=== PATIENT | male | born 1930 | race Caucasian/White ===

== ENCOUNTER → 2016-05-27 | Outpatient (CLI) | payer OTHER ==
--- NOTE | 2016-05-28 14:39 | CODING QUERY NO DIAGNOSIS ---
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 Please assist us with providing a diagnosis/symptom for the test(s) below: A diagnosis/symptom was not documented on your Order. A valid diagnosis/symptom is required to bill all insurances. Please remember that we are unable to code a diagnosis of rule out, probable, possible, questionable, or suspected. DOS 05/27/16 Tests that require a diagnosis: * THROAT CULTURE DIAGNOSIS: Provider Signature: Date: Thank you Gia Anne [employer] Once completed, please kindly fax back to [phone] For questions please call [phone]
== END ==
LOC: C.LABCC 18:04
PROVIDERS: ATTEND Internal Medicine
DX: J02.9 Acute pharyngitis, unspecified (principal)

== ENCOUNTER → 2016-10-23 | Outpatient (CLI) | payer OTHER ==
[2016-10-23 17:16] LABS: URINE APPEARANCE CLOUDY (CLEAR); URINE BILIRUBIN NEG (NEG); URINE COLOR YELLOW; URINE EPITHELIAL CELL AUTO 0-5 /lpf (0-5); URINE NITRITE POS (NEG); URINE SPECIFIC GRAVITY 1.018 (1.000-1.030); UROBILINOGEN NEG (NEG)
[2016-10-23 17:18] LABS: MANUAL MICROSCOPIC REQUIRED? NO; REVIEW REQ? YES
== END ==
LOC: C.LABCC 16:58
PROVIDERS: ATTEND Internal Medicine
DX: R41.82 Altered mental status, unspecified (principal)

== ENCOUNTER → 2017-02-17 | Outpatient (CLI) | payer OTHER ==
[2017-02-17 09:09] LABS: BASO % 0.3 %; BASO ABS # 0.02 K/uL (0-0.2); COMPLETE YES; EOS % 1.8 %; HEMATOCRIT 40.4 % (42-52); IG% 0.3 %; LYMPH % 14.5 %; LYMPH ABS # 0.99 K/uL (1.2-3.4); MEAN CELL VOLUME 95.3 fL (80-100); MEAN CORPUSCULAR HEMOGLOBIN 31.6 pg (25-34); MEAN CORPUSCULAR HGB CONC 33.2 g/dl (32-36); MEAN PLATELET VOLUME 10.2 fL (7.4-10.4); MONO % 13.5 %; NEUT % 69.6 %; PLATELET COUNT 283 K/uL (130-400); RED BLOOD COUNT 4.24 M/uL (4.7-6.1); WHITE BLOOD COUNT 6.82 K/uL (4.8-10.8)
[2017-02-17 09:17] LABS: BLOOD UREA NITROGEN 21 mg/dl (7-18); BUN/CREATININE RATIO 20.9 (10-20); CALCIUM 9.4 mg/dl (8.5-10.1); CARBON DIOXIDE 27 mmol/L (21-32); CHLORIDE 101 mmol/L (98-107); CREATININE 0.98 mg/dl (0.60-1.40); GLUCOSE 88 mg/dl (70-99); POTASSIUM 4.4 mmol/L (3.5-5.1); SODIUM 135 mmol/L (136-145)
== END ==
LOC: C.LABCC 08:58
PROVIDERS: ATTEND Internal Medicine
DX: F03.90 Unspecified dementia, unspecified severity, without behavioral disturbance, psychotic disturbance, mood disturbance, and anxiety (principal); I50.9 Heart failure, unspecified

== ENCOUNTER → 2017-02-21 | Outpatient (CLI) | payer OTHER ==
[2017-02-21 09:44] LABS: URINE APPEARANCE CLOUDY (CLEAR); URINE BILIRUBIN NEG (NEG); URINE COLOR YELLOW; URINE EPITHELIAL CELL AUTO 0-5 /lpf (0-5); URINE NITRITE NEG (NEG); URINE PH 7.5 (4.5-7.5); URINE SPECIFIC GRAVITY 1.017 (1.000-1.030); UROBILINOGEN NEG (NEG)
[2017-02-21 09:51] LABS: MANUAL MICROSCOPIC REQUIRED? NO; REVIEW REQ? NO
== END ==
LOC: C.LABCC 15:25
PROVIDERS: ATTEND Internal Medicine
DX: Z91.81 History of falling (principal)

== ENCOUNTER → 2017-07-27 | Outpatient (CLI) | payer OTHER | LOC: C.LABCC 17:38 | PROVIDERS: ATTEND Internal Medicine | DX: R41.82 Altered mental status, unspecified (principal); R29.6 Repeated falls ==

== ENCOUNTER 2017-08-15 17:47 | Emergency (ER) | payer MEDICARE ==
[~2017-08-15] VITALS: Ht 177.8 cm; Wt 57.2 kg
[2017-08-15 18:02] VITALS: Ht 177.8 cm; Wt 57.2 kg
--- NOTE | 2017-08-15 18:15 | EMERGENCY ROOM VISIT NOTE ---
History Report prepared by Juancarlos: Tarna Cardenas Under the Supervision of: Dr. Feliciano Mendez M.D. First contact with patient: 18:10 Chief Complaint: OTHER COMPLAINT Stated Complaint: FALL History of Present Illness The patient is a 87 year old male who presents to the Emergency Room with complaints of 1 episode of a fall that occurred prior to arrival. Per the Asencio Tillman Pain scale, his pain is rated as 0/10. Per nursing staff, the patient was lying horizontally, and was lying at the bottom of the bed at [facility] without head injury. He was found with a pillow underneath his head and a blanket on top of him. His hand was on his right hip and has red hathaway on his hips. Per nursing staff, he wears padded underpants and uses a Negar Lift. He is non ambulatory at baseline. 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 Review of Systems See HPI for pertinent positives & negatives. Limited review of systems.. Past Medical & Surgical Medical Problems: (1) Dementia Social History Smoking Status: Unknown if Ever Smoked Smokeless Tobacco Use: No Alcohol Use: none Drug Use: none Housing Status: [facility] Occupation Status: retired Current/Historical Medications Scheduled Cholecalciferol (Vitamin D3), 1,000 UNITS PO QAM Memantine (Namenda), 10 MG PO BID Polyvinyl Alcohol-Povidone (Op (Refresh), 1 DROP OPB BID Risperidone (Risperdal), 0.25 MG PO HS Trazodone Hcl (Trazodone), 25 MG PO HS [Skin Prep Broadus], 1 APPLN TD QPM [Skin Prep], 1 APPLN TD Q3DAYS Scheduled PRN Acetaminophen (Tylenol), 1,000 MG PO Q8 PRN for Pain or Fever Bisacodyl (Dulcolax), 1 SUPP [place] DAILY PRN for NO BM IN 3 DAYS. Ipratropium-Albuterol (Duoneb), 1 TREATMENT INH Q4H PRN for SOB/Wheezing Magnesium Hydroxide (Milk of Magnesia), 30 ML PO DAILY PRN for NO BM IN 3 DAYS. Sodium Phosphate/Biphosphate (Fleet Enema), 1 EA [place] DAILY PRN for NO BM AFTER DULCOLAX Allergies Coded Allergies: Donepezil (Verified Allergy, Unknown, [place] CREST LIST, 08/15/17) Iodinated Diagnostic Agents (Verified Allergy, Unknown, [place] CREST LIST , 08/15/17) Physical Exam Vital Signs Date Time Temp Pulse Resp B/P (MAP) Pulse Ox O2 Delivery O2 Flow Rate FiO2 08/15/17 20:40 36.8 66 18 139/77 95 08/15/17 20:30 66 18 139/77 95 Room Air 08/15/17 19:54 66 18 131/77 95 Room Air 08/15/17 19:10 62 18 128/70 95 Room Air 08/15/17 18:02 36.8 66 18 134/72 95 Room Air Physical Exam GENERAL: Patient is severely demented and in no acute distress. Answers questions with yes or moaning. Falls asleep during exam. EYES: No scleral icterus, unremarkable pupils. ENT: Mucous membranes moist, no nasal congestion. NECK: No masses appreciated, no meningismus, trachea is midline. RESPIRATORY: No dyspnea. Clear to auscultation and equal bilaterally. No wheeze , no rhonchi. CARDIOVASCULAR: Regular rate and rhythm. No murmurs, rubs, gallops appreciated. GASTROINTESTINAL: Abdomen soft, nontender, no peritonitis. Bowel sounds positive. No masses appreciated. BACK: No midline tenderness, no CVA tenderness EXTREMITIES: Normal motion all extremities, no cyanosis, no edema. Contractures of all extremities with muscle wasting. NEUROLOGIC: No acute motor or sensory deficits, no focal weakness, cranial nerves grossly intact. SKIN: No rash, no jaundice, no diaphoresis. Medical Decision & Procedures ER Provider Diagnostic Interpretation: Radiology results and stated below per my review and radiologist interpretation: CT SCAN OF THE CERVICAL SPINE CLINICAL HISTORY: Fall. COMPARISON STUDY: No priors. TECHNIQUE: CT scan of the cervical spine is performed from the skull base to the upper thoracic spine. Images are reviewed in the axial, sagittal, and coronal planes. IV contrast was not administered for this examination. A dose lowering technique was utilized adhering to the principles of ALARA. CT DOSE: Reported separately under the concurrently performed CT scan of the cervical spine. FINDINGS: Skeletal structures: The skeletal structures are osteopenic. There is no evidence of fracture or subluxation involving the cervical spine. Vertebral body height and alignment are maintained. Anterior osteophytes are seen throughout. The odontoid process and lateral masses are intact. The atlantoaxial articulation is preserved noting advanced productive degenerative change. The spinous processes appear intact. There is advanced multilevel cervical spondylosis. Uncovertebral and facet arthropathy contribute to neural foraminal stenosis at most levels. Intervertebral discs: There is moderate to advanced disc space narrowing seen at C4-C5, C5-C6, and C6-C7. Milder disc space narrowing is seen at the remaining cervical levels. Central canal: Large posterior disc osteophyte complexes at C4-C5, C5-C6, and C6-C7 likely contribute to multilevel acquired compromise of the central canal. Soft tissues: The prevertebral and paraspinous soft tissues are within normal limits. Atherosclerotic calcification is noted in the carotid bulbs. Calvarium: The visualized calvarium at the skull base appears intact. Brain parenchyma: Partially visualized brain parenchyma the skull base is within normal limits noting age-related involutional change. Sinuses and mastoids: There is opacification of the visualized right sphenoid sinus. The mastoid air cells are well pneumatized. Lung apices: Emphysematous change is noted at the lung apices. Apical lung parenchyma is otherwise grossly clear as imaged. IMPRESSION: 1. There is no evidence of fracture or subluxation involving the cervical spine. 2. Osteopenia and advanced spondylotic change as above. Electronically signed by: Juan Manuel Mota M.D. 08/15/2017 7:22 PM Dictated Date/Time: 08/15/2017 7:18 PM SINGLE VIEW CHEST CLINICAL HISTORY: Change in mental status. Presumed fall. FINDINGS: An AP, portable, upright chest radiograph is obtained. No prior studies are available for comparison at the time of dictation. The examination is degraded by portable technique and patient rotation. The cardiomediastinal silhouette is unremarkable. There is atherosclerotic calcification of the thoracic aorta. The pulmonary vasculature is noncongested. Nonspecific interstitial thickening is likely chronic. Bibasilar atelectasis versus scarring is identified. There is no airspace consolidation or large pleural effusion. No pneumothorax is seen. The skeletal structures are osteopenic. The bony thorax is grossly intact. Arthritic change is noted in the shoulders and thoracic spine. IMPRESSION: No acute cardiopulmonary abnormality. Electronically signed by: Juan Manuel Mota M.D. 08/15/2017 6:40 PM Dictated Date/Time: 08/15/2017 6:[address] SCAN OF THE BRAIN WITHOUT IV CONTRAST CLINICAL HISTORY: Fall. COMPARISON STUDY: No priors. TECHNIQUE: Unenhanced axial CT scan of the brain is performed from the vertex to the skull base. A dose lowering technique was utilized adhering to the principles of ALARA. CT DOSE: 1686.04 mGy.cm FINDINGS: Brain parenchyma: There are age-related involutional changes noting moderate to advanced confluent subcortical and periventricular microangiopathic change. There is no hemorrhage, mass effect, or evidence of acute territorial ischemia by CT criteria. Poon-white matter is preserved. No extra-axial fluid collection is seen. Ventricles, sulci, cisterns: Prominent secondary to involutional change. Intracranial vasculature: There is atherosclerotic calcification of the cavernous carotid and vertebral arteries. Calvarium: The skeletal structures are osteopenic. No depressed calvarial fracture is seen. Sinuses and mastoids: There is subtotal opacification of the right sphenoid sinus. The remaining visualized paranasal sinuses are clear. The mastoid air cells are well pneumatized. Orbits: The bony orbits are grossly intact. IMPRESSION: Senescent changes as above with no hemorrhage, mass effect, or evidence of acute territorial ischemia by CT criteria. Electronically signed by: Juan Manuel Mota M.D. 08/15/2017 7:16 PM Dictated Date/Time: 08/15/2017 7:14 PM SINGLE VIEW PELVIS CLINICAL HISTORY: Fall. Change in mental status. FINDINGS: An AP portable view of the pelvis is obtained. No prior studies are available for comparison at the time of dictation. The skeletal structures are osteopenic. There is no radiographic evidence of fracture involving the hips or bony pelvis. Mild to moderate arthritic change and joint space narrowing is seen in the hips. Sclerotic change is noted in the sacroiliac joints. Lumbosacral spondylosis is partially visualized. The overlying soft tissues are normal in appearance. Rectosigmoid fecal impaction is noted. There is no evidence of bowel obstruction. Numerous surgical clips are present in the pelvis. A penile prosthesis is in place. IMPRESSION: 1. Osteopenia with no radiographic evidence of fracture involving the hips or bony pelvis. 2. Rectosigmoid fecal impaction. Electronically signed by: Juan Manuel Mota M.D. 08/15/2017 6:42 PM Dictated Date/Time: 08/15/2017 6:40 PM ED Course 1810: The patient was evaluated in room C5. A complete history and physical exam was performed. 1929: I checked on the patient and he is stable with no change. 1944: Reevaluated the patient. Discussed results and discharge instructions: The nursing staff verbalized understanding and agreement. The patient is ready for discharge. Medical Decision Severely demented, essentially non-verbal, non walking male arrives after [facility] Unclear how he ended up on floor. He has no evidence of trauma by exam but went ahead with imaging given story and report he may have been tender right hip earlier. CT head/neck negative for acute injury. CXR and Pelvis xray unremarkable. Head Trauma GCS Score: 12 Medication Reconcilliation Current Medication List: was personally reviewed by me Blood Pressure Screening Patient's blood pressure: Normal blood pressure Blood pressure disposition: Did not require urgent referral Impression Primary Impression: Fall Scribe Attestation The scribe's documentation has been prepared under my direction and personally reviewed by me in its entirety. I confirm that the note above accurately reflects all work, treatment, procedures, and medical decision making performed by me. Departure Information Dispostion Home / Self-Care Referrals [facility] (PCP) Patient Instructions My [facility] Additional Instructions Imaging of Brain/Head, Cervical Spine, Chest and Pelvis revealed no fracture, bleeding on brain nor other acute findings. There is arthritis throughout.
[2017-08-15] MEDS ORDERED: POLYSOL OPB (18:34)
[2017-08-15] MEDS ORDERED: IPRASOL4 INH (18:34)
[2017-08-15] MEDS ORDERED: CHOL1000 PO (18:34)
[2017-08-15] MEDS ORDERED: SKIN PREP SPRAY TD (18:34)
[2017-08-15] MEDS ORDERED: ACET-1256 PO (18:34)
[2017-08-15] MEDS ORDERED: NMN10 PO (18:34)
[2017-08-15] MEDS ORDERED: SKIN PREP TD (18:34)
[2017-08-15] MEDS ORDERED: TRAZ50TA35 PO (18:34)
[2017-08-15] MEDS ORDERED: SODIENE PR (18:34)
[2017-08-15] MEDS ORDERED: RISP0.257 PO (18:34)
[2017-08-15] MEDS ORDERED: MOMLX PO (18:34)
[2017-08-15] MEDS ORDERED: BISA10SU38 PR (18:34)
--- NOTE | 2017-08-15 18:41 | DIAGNOSTIC IMAGING REPORT ---
SINGLE VIEW CHEST CLINICAL HISTORY: Change in mental status. Presumed fall. FINDINGS: An AP, portable, upright chest radiograph is obtained. No prior studies are available for comparison at the time of dictation. The examination is degraded by portable technique and patient rotation. The cardiomediastinal silhouette is unremarkable. There is atherosclerotic calcification of the thoracic aorta. The pulmonary vasculature is noncongested. Nonspecific interstitial thickening is likely chronic. Bibasilar atelectasis versus scarring is identified. There is no airspace consolidation or large pleural effusion. No pneumothorax is seen. The skeletal structures are osteopenic. The bony thorax is grossly intact. Arthritic change is noted in the shoulders and thoracic spine. IMPRESSION: No acute cardiopulmonary abnormality. Electronically signed by: Juan Manuel Mota M.D. 08/15/2017 6:40 PM Dictated Date/Time: 08/15/2017 6:38 PM
--- NOTE | 2017-08-15 18:43 | DIAGNOSTIC IMAGING REPORT ---
SINGLE VIEW PELVIS CLINICAL HISTORY: Fall. Change in mental status. FINDINGS: An AP portable view of the pelvis is obtained. No prior studies are available for comparison at the time of dictation. The skeletal structures are osteopenic. There is no radiographic evidence of fracture involving the hips or bony pelvis. Mild to moderate arthritic change and joint space narrowing is seen in the hips. Sclerotic change is noted in the sacroiliac joints. Lumbosacral spondylosis is partially visualized. The overlying soft tissues are normal in appearance. Rectosigmoid fecal impaction is noted. There is no evidence of bowel obstruction. Numerous surgical clips are present in the pelvis. A penile prosthesis is in place. IMPRESSION: 1. Osteopenia with no radiographic evidence of fracture involving the hips or bony pelvis. 2. Rectosigmoid fecal impaction. Electronically signed by: Juan Manuel Mota M.D. 08/15/2017 6:42 PM Dictated Date/Time: 08/15/2017 6:40 PM
--- NOTE | 2017-08-15 19:18 | DIAGNOSTIC IMAGING REPORT ---
CT SCAN OF THE BRAIN WITHOUT IV CONTRAST CLINICAL HISTORY: Fall. COMPARISON STUDY: No priors. TECHNIQUE: Unenhanced axial CT scan of the brain is performed from the vertex to the skull base. A dose lowering technique was utilized adhering to the principles of ALARA. CT DOSE: 1686.04 mGy.cm FINDINGS: Brain parenchyma: There are age-related involutional changes noting moderate to advanced confluent subcortical and periventricular microangiopathic change. There is no hemorrhage, mass effect, or evidence of acute territorial ischemia by CT criteria. Poon-white matter is preserved. No extra-axial fluid collection is seen. Ventricles, sulci, cisterns: Prominent secondary to involutional change. Intracranial vasculature: There is atherosclerotic calcification of the cavernous carotid and vertebral arteries. Calvarium: The skeletal structures are osteopenic. No depressed calvarial fracture is seen. Sinuses and mastoids: There is subtotal opacification of the right sphenoid sinus. The remaining visualized paranasal sinuses are clear. The mastoid air cells are well pneumatized. Orbits: The bony orbits are grossly intact. IMPRESSION: Senescent changes as above with no hemorrhage, mass effect, or evidence of acute territorial ischemia by CT criteria. Electronically signed by: Juan Manuel Mota M.D. 08/15/2017 7:16 PM Dictated Date/Time: 08/15/2017 7:14 PM
--- NOTE | 2017-08-15 19:24 | DIAGNOSTIC IMAGING REPORT ---
CT SCAN OF THE CERVICAL SPINE CLINICAL HISTORY: Fall. COMPARISON STUDY: No priors. TECHNIQUE: CT scan of the cervical spine is performed from the skull base to the upper thoracic spine. Images are reviewed in the axial, sagittal, and coronal planes. IV contrast was not administered for this examination. A dose lowering technique was utilized adhering to the principles of ALARA. CT DOSE: Reported separately under the concurrently performed CT scan of the cervical spine. FINDINGS: Skeletal structures: The skeletal structures are osteopenic. There is no evidence of fracture or subluxation involving the cervical spine. Vertebral body height and alignment are maintained. Anterior osteophytes are seen throughout. The odontoid process and lateral masses are intact. The atlantoaxial articulation is preserved noting advanced productive degenerative change. The spinous processes appear intact. There is advanced multilevel cervical spondylosis. Uncovertebral and facet arthropathy contribute to neural foraminal stenosis at most levels. Intervertebral discs: There is moderate to advanced disc space narrowing seen at C4-C5, C5-C6, and C6-C7. Milder disc space narrowing is seen at the remaining cervical levels. Central canal: Large posterior disc osteophyte complexes at C4-C5, C5-C6, and C6-C7 likely contribute to multilevel acquired compromise of the central canal. Soft tissues: The prevertebral and paraspinous soft tissues are within normal limits. Atherosclerotic calcification is noted in the carotid bulbs. Calvarium: The visualized calvarium at the skull base appears intact. Brain parenchyma: Partially visualized brain parenchyma the skull base is within normal limits noting age-related involutional change. Sinuses and mastoids: There is opacification of the visualized right sphenoid sinus. The mastoid air cells are well pneumatized. Lung apices: Emphysematous change is noted at the lung apices. Apical lung parenchyma is otherwise grossly clear as imaged. IMPRESSION: 1. There is no evidence of fracture or subluxation involving the cervical spine. 2. Osteopenia and advanced spondylotic change as above. Electronically signed by: Juan Manuel Mota M.D. 08/15/2017 7:22 PM Dictated Date/Time: 08/15/2017 7:18 PM
[2017-08-15 20:40] VITALS: BP 139/77; PULSE 66; TEMP 36.8; O2SAT 95
== END 2017-08-15 20:43 | disposition home or self-care (01) ==
LOC: EDBD 17:47 → C.EDC 17:48
DX: Z04.3 Encounter for examination and observation following other accident (principal); M62.59 Muscle wasting and atrophy, not elsewhere classified, multiple sites; F03.90 Unspecified dementia, unspecified severity, without behavioral disturbance, psychotic disturbance, mood disturbance, and anxiety; Z88.8 Allergy status to other drugs, medicaments and biological substances; Z91.041 Radiographic dye allergy status